=== PATIENT | male | born 1955 | race Caucasian/White ===

== ENCOUNTER 2018-02-07 09:54 | Day surgery (SDC) | payer OTHER ==
[2018-02-07] MEDS ORDERED: SOD CHLORIDE 0.9% 1,000 ML IV (11:00)
[2018-02-07] MEDS ORDERED: CEFAZOLIN 2 GM/50 ML (PMX) 50 ML IVPB (11:00)
[2018-02-07 11:48] LABS: ADD MAN DIFF? NO
[2018-02-07 12:10] LABS: WHITE BLOOD COUNT 6.3 10^3/ul (4.8-10.8)
[2018-02-07 12:10] LABS: BASOPHIL # 0.1 10^3/ul (0.0-0.1); BASOPHILS % 0.8 % (0.0-2.0); EOSINOPHILS # 0.2 10^3/ul (0.0-0.5); EOSINOPHILS % 3.2 % (0.0-7.0); HEMATOCRIT 38.8 % (42.0-52.0); LYMPHOCYTES # 1.7 10^3/ul (0.8-2.9); LYMPHOCYTES % 27.2 % (15.0-51.0); MEAN CORPUSCULAR HEMOGLOBIN 30.8 pg (29.0-33.0); MEAN CORPUSCULAR HGB CONC 33.5 g/dl (32.0-37.0); MEAN CORPUSCULAR VOLUME 91.9 fl (82.0-101.0); MEAN PLATELET VOLUME 10.4 fl (7.4-10.4); MONOCYTE # 0.5 10^3/ul (0.3-0.9); MONOCYTES % 7.3 % (0.0-11.0); NEUTROPHIL # 3.9 10^3/ul (1.6-7.5); NEUTROPHILS % 61.2 % (39.0-77.0); PLATELET COUNT 171 10^3/UL (140-415); RED BLOOD COUNT 4.22 10^6/ul (4.70-6.10); RED CELL DISTRIBUTION WIDTH 13.6 % (11.5-14.5)
[2018-02-07 12:17] LABS: ALANINE AMINOTRANSFERASE 18 IU/L (13-69); ALBUMIN 4.6 g/dl (3.3-4.9); ALBUMIN/GLOBULIN RATIO 1.27; ALKALINE PHOSPHATASE 54 IU/L (42-121); ANION GAP 14 (5-13); ASPARTATE AMINO TRANSFERASE 28 IU/L (15-46); BILIRUBIN,INDIRECT 0.7 mg/dl (0-1.1); BILIRUBIN,TOTAL 0.7 mg/dl (0.2-1.3); CALCIUM 9.2 mg/dl (8.4-10.2); CARBON DIOXIDE 28 mmol/L (21-31); CHLORIDE 97 mmol/L (97-110); Estimated GFR 6 mL/min (>60); GLUCOSE 118 mg/dl (70-220); SODIUM 139 mmol/L (135-144); TOTAL PROTEIN 8.2 g/dl (6.1-8.1)
[2018-02-07 12:24] LABS: POTASSIUM 6.3 mmol/L (3.5-5.1)
[2018-02-07 12:27] LABS: BLOOD UREA NITROGEN 50 mg/dl (7-20)
[2018-02-07 12:28] LABS: CREATININE 8.41 mg/dl (0.61-1.24)
[2018-02-07 12:31] LABS: INR 0.94; PROTIME 12.7 Sec (11.9-14.9)
[2018-02-07] MEDS ORDERED: NA POLYST SULFON 15 GM/60 ML BTL PO ×2 (14:00→15:30)
[2018-02-07 14:19] LABS: ANION GAP 15 (5-13); CALCIUM 9.6 mg/dl (8.4-10.2); CARBON DIOXIDE 29 mmol/L (21-31); Estimated GFR 6 mL/min (>60); GLUCOSE 116 mg/dl (70-220); SODIUM 140 mmol/L (135-144)
[2018-02-07] MEDS: NA POLYST SULFON 15 GM/60 ML BTL PR (14:30)
[2018-02-07 14:31] LABS: BLOOD UREA NITROGEN 52 mg/dl (7-20); CREATININE 8.77 mg/dl (0.61-1.24)
[2018-02-07 14:32] LABS: CHLORIDE 96 mmol/L (97-110); POTASSIUM 5.7 mmol/L (3.5-5.1)
== END 2018-02-07 15:20 | disposition home or self-care (01) ==
LOC: SDS 09:54
DX: I12.0 Hypertensive chronic kidney disease with stage 5 chronic kidney disease or end stage renal disease (principal); N18.6 End stage renal disease; Z53.9 Procedure and treatment not carried out, unspecified reason
CPT/HCPCS: 71045; 80048; 80053; 82962; 85025; 85610; 85730; 93005